=== PATIENT | male | born 1945 | race Caucasian/White ===

== ENCOUNTER 2021-05-29 10:23 | Outpatient (CLI) | payer MEDICARE ==
[2021-05-29 10:48] LABS: ANION GAP 4 mmol/L (5-15); CHLORIDE 109 mmol/L (98-107); CREATININE 1.01 mg/dL (0.7-1.3)
== END 2021-05-29 23:59 | disposition home or self-care (01) ==
LOC: LAB 10:23
PROVIDERS: ATTEND Family Medicine
DX: E87.1 Hypo-osmolality and hyponatremia (principal)
CPT/HCPCS: 36415; 80048